=== PATIENT | female | born 1970 | race Caucasian/White ===

== ENCOUNTER 2021-01-11 08:48 | Day surgery (SDC) | payer OTHER, SELFPAY ==
[2021-01-11] VITALS (7 sets, daily range): BP systolic 120–130; BP diastolic 72–89; PULSE 66–98; RESP 14–16; TEMP 36.1–36.2; O2SAT 94–100; BMI 27.3
[2021-01-11] MEDS: Lactated Ringers 1,000 ML 100 ML IV (10:15)
[2021-01-11] MEDS: Bupivacaine Mpf 0.5% 30 ML VIAL (11:05)
--- NOTE | 2021-01-11 11:37 | OP.PCM_ITS ---
Report of Operation Date of Procedure: 01/11/21 Pre-Operative Diagnosis: Subacromial impingement syndrome, AC joint arthrosis, possible RCT left Post-Operative Diagnosis: SAIS, AC joint arthrosis, intact rotator cuff tendon Description of Surgical Findings:: Report of Operation Date of Procedure: 01/11/21 Preoperative Diagnosis: Left shoulder, SAIS, AC joint arthrosis, possible rotator cuff tear Postoperative Diagnosis: Left Shoulder, same with intact rotator cuff Operation: Diagnostic and operative arthroscopy of the left shoulder with arthroscopic subacromial decompression and Jayme procedure Surgeon: Dr Troy Hamilton DO Biomathematician: Pratik Craig PA-C Anesthesia: general Anesthesiologist: Max Castellon M.D. Description of Procedure: With appropriate informed consent, the patient was taken to the operative suite. After induction of general and regional anesthesia and administration of preoperative antibiotics, the patient was placed in a beach-chair position with all bony prominences well padded. SCD's were on the legs. The left arm and shoulder were prepared and draped sterilely. Thereafter, the standard arthroscopy portals were established. The glenohumeral joint was in good condition without evidence of damage or arthrosis. An anterior portal was established. The biseps tendon was intact. The rotator cuff appeared intact from the glenohumeral surface. The tendon was marked with an 0-Prolene suture for inspection from the bursal surface. There was no labral instability. A lateral portal was established. There was severe hypertrophic subacromial bursitis. A complete subacromial bursectomy was carried out. This revealed the previously placed 0- Prolene suture. Visualization and probing of the rotator cuff revealed that it was intact. There was significant AC joint arthrosis. A bur was utilized to perform an anterior inferior acromionectomy to flatten the undersurface of the acromion and decompress the subacromial space. The bur was then utilized to resect the distal 9mm of the clavicle in the manner of Jayme. Arthroscopy instruments and fluids were removed. The portals were closed with interrupted sutures of 4-0 nylon followed by application of a sterile well- padded dressing and UltraSling. My special education teaching assistant, Mr Craig, provided a vital role in the performance of this procedure beginning with positioning of the patient, maneuvering the arm, holding the arthroscope during various portions of the diagnostic and operative arthroscopy. Then, under my direct supervision, he closed the wounds and applied the sterile post-operative dressing. The patient was extubated and transferred to the PACU in stable and satisfactory condition. Troy Hamilton DO Surgeon: Troy Hamilton director operations: Pratik Craig Type of Anesthesia: General Admit VTE Documentation VTE Present on Admission: No VTE Mechan Device Prophylaxis: SCD's VTE Pharm Prophylaxis ordered?: No Reason prophylaxis not ordered:: Treatment Not Indicated
[2021-01-11] MEDS: Epinephrine (1 mg/ml) 1 MG/ML VIAL (11:43)
== END 2021-01-11 14:18 | disposition home or self-care (01) ==
LOC: SDC 08:50 → AC 09:37
PROVIDERS: Referring Provider Orthopaedic Surgery; Visit Provider Orthopaedic Surgery
PROC: (CPT 29827; principal; 2021-01-11 10:05)
DX: M19.012 Primary osteoarthritis, left shoulder (principal); M75.42 Impingement syndrome of left shoulder; F32.9 Major depressive disorder, single episode, unspecified; M35.1 Other overlap syndromes; M06.9 Rheumatoid arthritis, unspecified; E07.9 Disorder of thyroid, unspecified; Z79.899 Other long term (current) drug therapy
CPT/HCPCS: 29822; 87426; C9803; J7120; J2405